=== PATIENT | female | born 1950 | race Caucasian/White ===

== ENCOUNTER 2025-05-01 09:30 | Outpatient (CLI) | payer OTHER ==
[~2025-05-01 09:30] MED LIST: ALBUTEROL S5 MG/1 ML IH; IRBESARTAN-HCT1 EACH PO; MULTIPLE VITAM1 EAC2 PO; PROAIR RESPICL90 MCG IH
== END 2025-05-01 09:33 | disposition home or self-care (01) ==
LOC: RAD 09:30
PROVIDERS: ATTEND General Practice
DX: M25.561 Pain in right knee (principal); M25.562 Pain in left knee

== ENCOUNTER 2025-06-09 10:24 | Outpatient (CLI) | payer OTHER | END 2025-06-09 10:39 | disposition home or self-care (01) | LOC: NUCLEAR 10:24 | PROVIDERS: ATTEND General Practice | DX: M81.0 Age-related osteoporosis without current pathological fracture (principal) ==

== ENCOUNTER 2025-07-10 11:18 | Outpatient (CLI) | payer OTHER | END 2025-07-10 11:20 | disposition home or self-care (01) | LOC: RAD 11:18 | PROVIDERS: ATTEND General Practice | DX: M79.672 Pain in left foot (principal) ==